=== PATIENT | male | born 1965 | race Hispanic/Latino ===

== ENCOUNTER 2016-10-31 05:47 | Emergency (ER) | payer OTHER ==
[2016-10-31 06:06] VITALS: BP 148/87; PULSE 106; RESP 18; TEMP 99.5; O2SAT 96
[2016-10-31] MEDS ORDERED: Lidocaine 1% Inj (20ml) ONE (06:13)
[2016-10-31] MEDS ORDERED: Lidocaine 1% Inj (20ml) IJ ONE (06:16)
--- NOTE | 2016-10-31 07:13 | ED PDOC ---
Upper Extremity Pain/Injury Time Seen by Provider: 10/31/16 06:11 Chief Complaint (Nursing): Abnormal Skin Integrity Chief Complaint (Provider): Abscess Left Forearm/Pain History Per: Patient History/Exam Limitations: no limitations Onset/Duration Of Symptoms: Days (x7) Current Symptoms Are (Timing): Still Present Quality: "Pain" Additional Complaint(s): Daniel Lr is a 51 year old male that presents to the ED with an abscess on his left forearm that he has had for the past seven days. Patient states that he attempted to alfie it himself but was unsuccessful, and has increased pain and swelling to his arm today. He reports that he has chills, but denies any fever. Past Medical History Reviewed: Historical Data, Nursing Documentation, Vital Signs Vital Signs: Last Vital Signs Temp 99.5 F 10/31/16 06:03 Pulse 106 H 10/31/16 06:03 Resp 18 10/31/16 06:03 BP 148/87 10/31/16 06:03 Pulse Ox 96 10/31/16 06:03 - Family History Family History: States: Unknown Family Hx - Home Medications Home Medications: Ambulatory Orders Medication Instructions Recorded Clindamycin [Cleocin] 300 mg PO QID 10 Days 10/31/16 - Allergies Allergies/Adverse Reactions: Allergies Allergy/AdvReac Type Severity Reaction Status Date / Time No Known Allergies Allergy Verified 10/31/16 06:03 Review of Systems Constitutional: Positive for: Chills. Negative for: Fever Musculoskeletal: Positive for: Arm Pain (left forearm pain) Physical Exam - Reviewed Nursing Documentation Reviewed: Yes Vital Signs Reviewed: Yes - Physical Exam Appears: Positive for: Non-toxic, No Acute Distress Head Exam: Positive for: ATRAUMATIC, NORMOCEPHALIC Skin: Positive for: Normal Color, Warm Cardiovascular/Chest: Positive for: Regular Rate, Rhythm. Negative for: Murmur Respiratory: Positive for: Normal Breath Sounds. Negative for: Wheezing Extremity: Positive for: Other (fluctuant abscess with surrounding erythema to left antecubital fossa extending to left wrist) Neurologic/Psych: Positive for: Alert, Oriented - ECG O2 Sat by Pulse Oximetry: 96 (RA) Pulse Ox Interpretation: Normal Medical Decision Making Medical Decision Making: Impression: Abscess on Left Forearm * Wound Culture and Gram Stain * Lidocaine 1% 20 mL * I & D Procedure Gave patient Rx for Clindamycin and instructed to return to ED in 2 days. Patient is stable and ready for discharge home. Scribe Attestation: Documented by Sandy Carlson, acting as a scribe for Osmin Kaiser MD. Provider Scribe Attestation: All medical record entries made by the Scribe were at my direction and personally dictated by me. I have reviewed the chart and agree that the record accurately reflects my personal performance of the history, physical exam, medical decision making, and the department course for this patient. I have also personally directed, reviewed, and agree with the discharge instructions and disposition. Procedures - Incision and Drainage Site: Left forearm Blade Size: 11 Progress: 10cc's of pus and blood were drained. Wound dressing applied. Patient tolerated procedure well, no immediate complications. Disposition - Clinical Impression Clinical Impression: Heroin abuse, Abscess - Disposition Referrals: [facility] [Outside] Disposition Time: 07:00 Condition: STABLE Additional Instructions: PLEASE RETURN TO THE ER IN 2 DAYS (SATURDAY, 11/02) FOR A WOUND CHECK. IF YOU DEVELOP FEVERS AT HOME (>100.4), WORSENING CHILLS, OR OTHER CONCERNING SYMPTOMS , PLEASE RETURN SOONER. Prescriptions: Clindamycin [Cleocin] 300 mg PO QID 10 Days Instructions: Abscess Incision and Drainage (ED), Narcotic Abuse (ED), Abscess (ED)
== END 2016-10-31 07:15 | disposition home or self-care (01) ==
LOC: H.ER 05:47
DX: L02.414 Cutaneous abscess of left upper limb (principal); F11.20 Opioid dependence, uncomplicated

== ENCOUNTER 2016-11-02 06:04 | Emergency (ER) | payer OTHER ==
[2016-11-02 06:20] VITALS: RESP 17; TEMP 98.7
--- NOTE | 2016-11-02 07:11 | ED PDOC ---
- ECG O2 Sat by Pulse Oximetry: 95 (RA) Pulse Ox Interpretation: Normal Medical Decision Making Medical Decision Makin:00 Patient was signed off to me by Anthony White MD. Pending Scribe Attestation: Documented by~Miriam Simons, acting as a scribe for Jessica Wagner MD. Provider Scribe Attestation: All medical record entries made by the Scribe were at my direction and personally dictated by me. I have reviewed the chart and agree that the record accurately reflects my personal performance of the history, physical exam, medical decision making, and the department course for this patient. I have also personally directed, reviewed, and agree with the discharge instructions and disposition.
[2016-11-02] MEDS ORDERED: TDAP Vaccine 0.5 mL Syr IM ONE (07:22)
--- NOTE | 2016-11-02 07:28 | ED PDOC ---
- ECG O2 Sat by Pulse Oximetry: 95 (RA) Pulse Ox Interpretation: Normal Medical Decision Making Medical Decision Making: Time: Initial Impression: Initial Plan: Scribe Attestation: Documented by Miriam Simons, acting as a scribe for Jessica Wagner MD. Provider Scribe Attestation: All medical record entries made by the Scribe were at my direction and personally dictated by me. I have reviewed the chart and agree that the record accurately reflects my personal performance of the history, physical exam, medical decision making, and the department course for this patient. I have also personally directed, reviewed, and agree with the discharge instructions and disposition.
--- NOTE | 2016-11-02 07:53 | ED PDOC ---
HPI: Wound Care - HPI Time Seen by Provider: 11/02/16 07:09 Chief Complaint (Nursing): Abnormal Skin Integrity Chief Complaint (Provider): Left forearm abscess History Per: Patient Exam Limitations: no limitations Onset/Duration Of Symptoms: Days (x5) Current Symptoms Are (Timing): Still Present Additional Complaint(s): Daniel Lr is a 51 year old male, with no previous medical history, who presents to the emergency department for a wound check of an abscess on his left forearm which he had drained 2 days prior in the ED. Patient reports being compliant with antibiotics prescribed from last ED visit. He states he had a subjective fever two days ago and that the abscess is sore but better after drainage. Denies any pressure sensation. Last tetanus vaccination is unknown. Of note, patient also complains of a sore on his left ankle. Denies any further medical complaints. PMD: None provided Past Medical History Reviewed: Historical Data, Nursing Documentation, Vital Signs Vital Signs: Last Vital Signs Temp 98.7 F 11/02/16 06:12 Pulse 107 H 11/02/16 06:12 Resp 17 11/02/16 06:12 BP 156/88 H 11/02/16 06:12 Pulse Ox 95 11/02/16 06:12 - Medical History PMH: HTN (not currently on medications) - Family History Family History: States: Unknown Family Hx - Home Medications Home Medications: Ambulatory Orders Medication Instructions Recorded Clindamycin [Cleocin] 300 mg PO QID 10 Days 10/31/16 Naproxen [Naprosyn] 500 mg PO BID PRN #15 tablet 11/02/16 - Allergies Allergies/Adverse Reactions: Allergies Allergy/AdvReac Type Severity Reaction Status Date / Time No Known Allergies Allergy Verified 10/31/16 06:03 Review of Systems ROS Statement: Except As Marked, All Systems Reviewed And Found Negative Constitutional: Positive for: Fever (x2 days prior to arrival) Skin: Positive for: Lesions (abscess on left forearm, feels sore but getting better after drainage. No pressure sensation. abscess on his left ankle.) Physical Exam - Reviewed Nursing Documentation Reviewed: Yes Vital Signs Reviewed: Yes - Physical Exam Appears: Positive for: Well, Non-toxic, No Acute Distress Skin: Positive for: Normal Color, Warm, Dry Cardiovascular/Chest: Positive for: Regular Rate, Rhythm Respiratory: Positive for: CNT, Normal Breath Sounds Extremity: Positive for: Tenderness (Left forearm lesion is tender to palpitation.), Capillary Refill (< 2 seconds ), Other (2cm lesion on the left anterior forearm with surrounding induration, erythema, and edema. No fluctuance noted. Also, left ankle lesion has chronic appearance with no erythema, No edema, no induration ) Neurologic/Psych: Positive for: Alert, Oriented - Laboratory Results Result Diagrams: 11/02/16 08:25 11/02/16 08:25 - ECG O2 Sat by Pulse Oximetry: 95 (RA) Pulse Ox Interpretation: Normal Medical Decision Making Medical Decision Making: Time: 7:22 Initial Impression: Cellulitis Initial Plan: Labs VBG Shock Panel PTT PT TDAP Vaccine 0.5ml IM Vancomycin 1gm Blood culture Re-evaluation Upon disposition, patient was found with dressing on hand and jacket on stating he placed the dressing on himself and another nurse removed the IV line from his hand. When asked again who removed the IV he stated he did. Nurse removed the dressing and found that the IV was still in place, IV was then removed. Scribe Attestation: Documented by Miriam Simons, acting as a scribe for Jessica Wagner MD. Provider Scribe Attestation: All medical record entries made by the Scribe were at my direction and personally dictated by me. I have reviewed the chart and agree that the record accurately reflects my personal performance of the history, physical exam, medical decision making, and the department course for this patient. I have also personally directed, reviewed, and agree with the discharge instructions and disposition. Disposition - Clinical Impression Clinical Impression: Cellulitis and abscess of upper arm and forearm - Patient ED Disposition Is Patient to be Admitted: No Doctor Will See Patient In The: Office Counseled Patient/Family Regarding: Studies Performed, Diagnosis, Need For Followup, Rx Given - Disposition Referrals: [facility] [Outside] Disposition: Routine/Home Condition: STABLE Additional Instructions: RETURN TO ED IN 48 HOURS FOR WOUND CHECK. CONTINUE CLINDAMYCIN PRESCRIBED. Prescriptions: Naproxen [Naprosyn] 500 mg PO BID PRN #15 tablet PRN Reason: Pain, Moderate (4-7) Instructions: Cellulitis (ED), Abscess (ED)
[2016-11-02 08:29] LABS: BASO % 0.9 % (0.0-2.0); EOS # 0.1 K/uL (0.0-0.7); EOS % 1.7 % (0.0-4.0); HEMATOCRIT 35.5 % (35.0-51.0); LYMPH # 0.6 K/uL (1.0-4.3); LYMPH % 17.5 % (20.0-40.0); MEAN CORPUSCULAR HEMOGLOBIN 22.1 pg (27.0-31.0); MEAN CORPUSCULAR HGB CONC 31.2 g/dL (33.0-37.0); MEAN PLATELET VOLUME 6.8 fl (7.2-11.7); MONO # 0.3 K/uL (0.0-0.8); MONO % 8.2 % (0.0-10.0); NEUT # 2.6 K/uL (1.8-7.0); NEUT % 71.7 % (50.0-75.0); NRBC % 0.1 % (0.0-0.0); RED CELL DISTRIBUTION WIDTH 18.9 % (11.5-14.5); WHITE BLOOD COUNT 3.6 K/uL (4.8-10.8)
[2016-11-02 08:35] LABS: VENOUS BLOOD GAS BASE EXCESS 2.4 mmol/L (0.0-2.0); VENOUS BLOOD GAS PCO2 49 mmHg (40-60); VENOUS BLOOD PH 7.37 (7.32-7.43)
[2016-11-02 08:40] LABS: ALB/GLOB RATIO 0.7 (1.0-2.1); ALKALINE PHOSPHATASE 136 U/L (38-126); ALT/SGPT 28 U/L (21-72); AST/SGOT 42 U/L (17-59); BILIRUBIN,TOTAL 0.3 mg/dl (0.2-1.3); BLOOD UREA NITROGEN 9 mg/dl (9-20); CALCIUM 8.4 mg/dL (8.4-10.2); CARBON DIOXIDE 24 mmol/L (22-30); CHLORIDE 100 mmol/L (98-107); GFR AFRICAN-AMERICAN > 60; GLUCOSE,RANDOM 103 mg/dL (75-110); POTASSIUM 4.3 MMOL/L (3.6-5.0); SODIUM 135 mmol/l (132-148)
[2016-11-02 09:08] LABS: PARTIAL THROMBOPLASTIN TIME 31.2 Seconds (25.6-37.1)
[2016-11-02 10:29] VITALS: BP 132/76; PULSE 84
[2016-11-02 11:00] VITALS: O2SAT 95
== END 2016-11-02 10:29 | disposition home or self-care (01) ==
LOC: H.ER 06:04
DX: L03.114 Cellulitis of left upper limb (principal)

== ENCOUNTER 2016-11-06 07:34 | Emergency (ER) | payer OTHER ==
[2016-11-06 07:40] VITALS: BMI 33.5
[2016-11-06 07:42] VITALS: BP 158/90; PULSE 110; RESP 20; TEMP 99.4; O2SAT 97
--- NOTE | 2016-11-06 08:28 | ED PDOC ---
HPI: Wound Care - HPI Time Seen by Provider: 11/06/16 08:03 Chief Complaint (Nursing): Wound Check Past Medical History Vital Signs: Last Vital Signs Temp 99.4 F 11/06/16 07:40 Pulse 110 H 11/06/16 07:40 Resp 20 11/06/16 07:40 BP 158/90 H 11/06/16 07:40 Pulse Ox 97 11/06/16 07:40 - Medical History PMH: HTN (not currently on medications) - Family History Family History: States: Unknown Family Hx - Immunization History Hx Tetanus Toxoid Vaccination: Yes - Home Medications Home Medications: Ambulatory Orders Medication Instructions Recorded Clindamycin [Cleocin] 300 mg PO QID 10 Days 10/31/16 Naproxen [Naprosyn] 500 mg PO BID PRN #15 tablet 11/02/16 - Allergies Allergies/Adverse Reactions: Allergies Allergy/AdvReac Type Severity Reaction Status Date / Time No Known Allergies Allergy Verified 11/06/16 07:54 - ECG O2 Sat by Pulse Oximetry: 97 Disposition - Clinical Impression Clinical Impression: Encounter for wound re-check - Patient ED Disposition Is Patient to be Admitted: No Counseled Patient/Family Regarding: Studies Performed, Diagnosis, Need For Followup - Disposition [facility]errals: [facility] [Outside] [facility] [Outside] [facility] [Outside] Disposition: Left W/O Treatment Disposition Time: 08:43 Condition: GOOD Additional Instructions: Return for worsening. Continue medications at home. Follow up with your PCP in 2 -3 days. Instructions: Cellulitis (ED), Chronic Wound Care (ED)
== END 2016-11-06 08:50 | disposition left against medical advice (07) ==
LOC: H.ER 07:34
DX: L03.114 Cellulitis of left upper limb (principal)